=== PATIENT | male | born 1995 | race American Indian/Alaskan Native ===

== ENCOUNTER 2017-01-27 11:05 | Emergency (ER) | payer SELFPAY ==
[2017-01-27] MEDS ORDERED: TORADOL IM ONE (16:29)
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
[2017-01-27 17:56] VITALS: BP 131/90
--- NOTE | 2017-01-27 17:57 | XRay Report ---
FINAL REPORT EXAM: XR SPINE LUMBOSACRAL 2-3V HISTORY: BACK INJURY TECHNIQUE: Lumbar spine 3 views PRIORS: None. FINDINGS: Vertebral bodies demonstrate normal height and alignment. The disc spaces are within normal limits. There is no evidence of spondylolisthesis. Transverse and spinous processes are intact SI joints are unremarkable. IMPRESSION: Negative lumbar spine series
== END 2017-01-27 17:54 | disposition home or self-care (01) ==
LOC: ED 11:05
DX: M54.12 Radiculopathy, cervical region (principal); M54.16 Radiculopathy, lumbar region; M79.631 Pain in right forearm; F17.200 Nicotine dependence, unspecified, uncomplicated
CPT/HCPCS: 72040; 72100; 96372; 99283; J1885